=== PATIENT | female | born 1945 | race Caucasian/White ===

== ENCOUNTER 2018-07-07 09:12 | Emergency (ER) | payer MEDICARE, SELFPAY ==
[2018-07-07 09:15] VITALS: BP 129/77; PULSE 76; RESP 18; TEMP 36.7; O2SAT 96; BMI 25.8
--- NOTE | 2018-07-07 10:02 | DI.US.S_ITS ---
PROCEDURE: US PERIPH VENOUS LOW EXTREM RT INDICATIONS: hx. dvt, leg swelling TECHNIQUE: Real-time imaging, as well as color and pulse Doppler interrogation, were performed of the lower extremity deep veins from the inguinal ligament to the popliteal fossa. COMPARISON: None. FINDINGS: The deep veins are normally compressible, and free of intraluminal thrombus. Color and pulse Doppler demonstrate normal phasic intraluminal flow. There is normal augmentation response to distal compression maneuver. IMPRESSION: No visualized deep venous thrombosis. Dictated by: Rosita Amaya M.D. on 07/07/2018 at 11:03 Approved by: Rosita Amaya M.D. on 07/07/2018 at 11:03
[2018-07-07 10:21] VITALS: BP 119/73; PULSE 62; RESP 16; O2SAT 99
--- NOTE | 2018-07-07 10:21 | ED.LOWEXIN ---
HPI - Extremity Injury (Lower) General Chief Complaint: Extremity Injury, Lower Stated Complaint: CUT RIGHT LEG, SWOLLEN Time Seen by Provider: 07/07/18 09:51 Source: patient Mode of arrival: ambulatory Limitations: no limitations History of Present Illness HPI Narrative: Patient is a 72-year-old female who presents with right leg pain and swelling history of DVT and breast cancer. She bumped her leg a few days ago while on Eliquis. It has scabbed over appropriately. They did travel to [place] after she bumped it. She notices swelling that night. He has not had any fever or chills no streaking or redness. The swelling is now improved. She has no calf pain no chest pain or shortness of breath. Related Data Home Medications Medication Instructions Recorded Confirmed Citracal D 1 tab PO DAILY 07/07/18 07/07/18 apixaban [Eliquis] 5 mg PO BID 07/07/18 07/07/18 levothyroxine 1 tab PO DAILY 07/07/18 07/07/18 losartan 1 tab PO DAILY 07/07/18 07/07/18 Allergies Allergy/AdvReac Type Severity Reaction Status Date / Time No Known Drug Allergies Allergy Verified 07/07/18 09:45 Review of Systems Review of Systems GENERAL: Denies chills,fever HEENT: Denies throat pain RESPIRATORY: Denies dyspnea, cough, wheezing CARDIOVASCULAR: Denies chest pain, palpitations GASTROINTESTINAL: Denies nausea, vomiting MUSCULOSKELETAL: See HPI SKIN: A scab over right leg see HPI NEUROLOGIC: Denies weakness, dizziness, headache, numbness 8 point review of systems is negative except for those stated above and HPI All systems reviewed & are unremarkable except as noted in HPI and below PFSH Medical History Breast cancer (Acute) DVT (deep venous thrombosis) (Acute) Social History Smoking Status: Never smoker Exam Initial Vital Signs Initial Vital Signs: Vital Signs Temperature 98.1 F 07/07/18 09:15 Pulse Rate 76 07/07/18 09:15 Respiratory Rate 18 07/07/18 09:15 Blood Pressure 129/77 07/07/18 09:15 Pulse Oximetry 96 07/07/18 09:15 GENERAL: Well-appearing, well-nourished and in no acute distress. HEENT: Head atraumatic,EOMI, pupils reactive CARDIOVASCULAR: Regular rate and rhythm without murmurs, rubs or gallops. RESPIRATORY: Breath sounds equal bilaterally, no wheezes rales or rhonchi. EXTREMITIES: Normal range of motion, no clubbing or edema. Neurovascularly intact NEUROLOGICAL: Alert and oriented x4.Normal gait and speech. SKIN: Scabbed over lesions right anterior leg minimal surrounding erythema no streaking Course Orders Ordered: ED Orders 07/07/18 10:02 US perip venous low extrem rt Stat Vital Signs - 8 hr 07/07/18 09:15 Temperature 98.1 F Pulse Rate 76 Respiratory Rate 18 Blood Pressure 129/77 Pulse Oximetry 96 MDM - Extremity Injury (Lower) Imaging Data Venous US: Radiologist's impression: PROCEDURE: US PERIP VENOUS LOW EXTREM RT INDICATIONS: hx. dvt, leg swelling TECHNIQUE: Real-time imaging, as well as color and pulse Doppler interrogation, were performed of the lower extremity deep veins from the inguinal ligament to the popliteal fossa. COMPARISON: None. FINDINGS: The deep veins are normally compressible, and free of intraluminal thrombus. Color and pulse Doppler demonstrate normal phasic intraluminal flow. There is normal augmentation response to distal compression maneuver. IMPRESSION: No visualized deep venous thrombosis. Dictated by: Rosita Amaya M.D. on 07/07/2018 at 11:03 MDM Narrative Medical decision making narrative: at this time no sign of DVT and she is on Eliquis, scabbed not appear infected. Discussed signs of infection with patient. Discharge Plan Departure Patient Disposition: Home Clinical Impression: Abrasion of anterior right lower leg Discharge Date/Time: 07/07/18 10:56 Interventions: ED Discharge Assessment Last Done: 07/07/18 10:56 Instructions: DI for Abrasion Activity Restrictions/Additional Instructions: *You have been diagnosed with right leg abrasion *What to do: No sign of DVT or infection at this time *Continue to take medications as directed Bacitracin ointment twice a day to help with healing *Follow up with your primary care provider in 2-3 days *Return to ER if you should have increasing swelling, redness more than 2-3 fingers, fevers pain or any new, worsening or concerning symptoms Prescriptions: No Action losartan 50 mg tablet 1 tab PO DAILY RF: 0 levothyroxine 100 mcg tablet 1 tab PO DAILY RF: 0 apixaban [Eliquis] 5 mg tablet 5 mg PO BID RF: 0 Citracal D 1 tab PO DAILY RF: 0
== END 2018-07-07 10:56 | disposition home or self-care (01) ==
PROVIDERS: Emergency Provider Emergency Medicine
DX: S80.811A Abrasion, right lower leg, initial encounter (principal); W22.8XXA Striking against or struck by other objects, initial encounter
CPT/HCPCS: 93971; 99282; 99284